=== PATIENT | female | born 1995 | race Caucasian/White ===

== ENCOUNTER 2017-06-29 11:54 | Emergency (ER) | payer BC ==
[~2017-06-29] VITALS: Ht 152.4 cm; Wt 51.7 kg
--- NOTE | 2017-06-29 12:19 | NUR ---
PATIENT TO ED DT LOWER ABDOMINAL PAIN, CRAMP LIKE, 06/14 SINCEN THIS MORNING. ON MENSTRUAL PERIOD, USED 2 TAMPONS SINCE THIS AM. DENIES HEMATURIA NOR DYSURIA. VSS
[2017-06-29 12:31] LABS: APPEARANCE,URINE Clear (CLEAR); BILIRUBIN,URINE Negative (NEGATIVE); BLOOD, URINE Large Ery/uL (NEGATIVE); COLOR,URINE Light yellow (YELLOW); KETONES,URINE Negative (NEGATIVE); LEUKOCYTE ESTERASE ,URINE Negative (NEGATIVE); NITRITE, URINE Negative (NEGATIVE); PROTEIN,URINE Negative (NEGATIVE); UGLUCOSE Negative (NEGATIVE); UROBILINOGEN,URINE 0.2 EU/dL (0.2)
[2017-06-29 12:48] LABS: BACTERIA,URINE Rare /HPF (None Seen); RBC,URINE 50-80 /HPF (0-2); SQUAMOUS EPITHELIAL CELL,UR Few /HPF (None Seen); WBC,URINE 0-3 /HPF (0-3)
[2017-06-29 13:23] VITALS: BP 110/70
[2017-06-29] MEDS ORDERED: HYDROCODONE/APAP 5/325MG 1 EACH TABLET ONE (13:24)
--- NOTE | 2017-06-29 13:24 | NUR ---
Patient discharged to home in stable condition. Written and verbal after care instructions given. Patient verbalizes understanding of instruction.
[2017-06-29] MEDS ORDERED: HYDROCODONE/APAP 5/325MG 1 EACH TABLET PO ONE (13:30)
== END 2017-06-29 13:25 | disposition home or self-care (01) ==
LOC: ER 11:59
DX: N92.6 Irregular menstruation, unspecified (principal); Z91.040 Latex allergy status
CPT/HCPCS: 76856; 81001; 84703; 99285; A4606; Z7610; 81000-TC